=== PATIENT | male | born 1955 | race Caucasian/White ===

== ENCOUNTER → 2024-06-12 15:34 | Outpatient (REF) | payer OTHER, SELFPAY | LOC: RCS 15:34 | PROVIDERS: ATTENDING PHYSICIAN Internal Medicine Cardiovascular Disease; FAMILY PHYSICIAN Family Medicine | DX: I63.40 Cerebral infarction due to embolism of unspecified cerebral artery (principal) | CPT/HCPCS: 93306 ==

== ENCOUNTER → 2024-07-12 08:00 | Outpatient (REF) | payer OTHER, SELFPAY | LOC: RAD 08:00 | PROVIDERS: ATTENDING PHYSICIAN Psychiatry & Neurology Neurology; FAMILY PHYSICIAN Family Medicine; OTHER PHYSICIAN Internal Medicine Cardiovascular Disease | DX: I63.10 Cerebral infarction due to embolism of unspecified precerebral artery (principal) | CPT/HCPCS: 93880 ==

== ENCOUNTER 2024-08-29 11:38 | Day surgery (SDC) | payer OTHER, SELFPAY ==
[2024-08-29 12:52] VITALS: BMI 34.0
--- NOTE | 2024-08-29 14:04 | ITS.CL.IMPLP ---
Behavioral Assistant - Implant Loop
Implant Loop
Procedure Report:
Primary Physician: Sajan Dao MD
Primary Fuel Verification Technician: Kendrick Moore MD
Procedure Date: 08/29/2024
Procedure: Placement of a loop recorder.
History/Indication:
1. See office H&P for complete history.
2. 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 Patient undergoing ILR implant
due to longitudinal surveillance and concern for cardioembolic/arrhythmogenic source.
Method:
After informed consent was obtained, the patient was brought to the EP laboratory holding area in a fasting, non-sedated state. Peripheral access was established. The left chest was prepared and draped in a sterile fashion. A 'time out' was
called. Local anesthesia was injected in the subcutaneous tissue. The ILR was injected under the skin. Topical skin adhesive was applied. Following the procedure, the patient was taken to the recovery area in stable condition. No complications
were noted.
Device Data:
[employer]zles; Model# Linq II; Serial# [id number]
Conclusion:
Successful placement of a loop recorder.
Recommendations:
1. Follow-up will be arranged in the [facility] in 7-10 days for wound check.
2. Routine ILR care.
Imer Duckworth DO
Clinical Cardiac [employer]
cc: max Dao MD; Kendrick Moore MD
== END 2024-08-29 14:36 | disposition home or self-care (01) ==
LOC: CATH 11:38
PROVIDERS: ATTENDING PHYSICIAN Internal Medicine Cardiovascular Disease; FAMILY PHYSICIAN Family Medicine; OTHER PHYSICIAN Internal Medicine Cardiovascular Disease
DX: Z09 Encounter for follow-up examination after completed treatment for conditions other than malignant neoplasm (principal); G47.30 Sleep apnea, unspecified; I10 Essential (primary) hypertension; E78.5 Hyperlipidemia, unspecified
CPT/HCPCS: 33285; C1764